=== PATIENT | male | born 1935 | race Caucasian/White ===

== ENCOUNTER 2021-09-05 09:28 | Outpatient (CLI) | payer MEDICARE, BC ==
[~2021-09-05 09:28] MED LIST: iohexol 350MG/ML 100ml bottle IV ONE
== END 2021-09-05 23:59 | disposition home or self-care (01) ==
LOC: 64 CT 09:28
PROVIDERS: ATTEND Urology
DX: C61 Malignant neoplasm of prostate (principal); K80.20 Calculus of gallbladder without cholecystitis without obstruction; I70.0 Atherosclerosis of aorta
CPT/HCPCS: 74176; Q9967